=== PATIENT | male | born 1975 | race Caucasian/White ===

== ENCOUNTER 2016-07-22 10:13 | Emergency (ER) | payer OTHER, MEDICARE, MEDICAID ==
[2016-07-22 10:32] VITALS: TEMP 98; BMI 25.5
[2016-07-22 10:45] VITALS: BP 134/73; PULSE 76
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
[2016-07-22] MEDS ORDERED: IBUPROFEN 800 MG TAB PO ONE (10:52)
[2016-07-22] MEDS ORDERED: CYCLOBENZAPRINE 10 MG TAB PO ONE (10:52)
== END 2016-07-22 11:08 | disposition home or self-care (01) ==
LOC: ED 10:13
DX: M54.5 Low back pain (principal); S33.5XXA Sprain of ligaments of lumbar spine, initial encounter; X58.XXXA Exposure to other specified factors, initial encounter; Y93.9 Activity, unspecified; Y92.89 Other specified places as the place of occurrence of the external cause
CPT/HCPCS: 99283; J3490